=== PATIENT | female | born 1980 | race Caucasian/White ===

== ENCOUNTER → 2024-03-24 | Outpatient (CLI) | payer OTHER, SELFPAY ==
--- NOTE | 2024-03-24 15:30 | XR_ITS ---
Examination: Screening digital mammography, bilateral Computer aided detection 3-D breast Tomosynthesis, bilateral Date and time of exam: March 24, 2024 1519 hours No priors Indication: Screening Technique: Nonmagnified MLO, CC views of the breasts to been obtained, reconstructed from 3-D Tomosynthesis images. R2 computer aided detection program utilized for evaluation of suspicious masses and/or abnormal calcifications. 3-D Tomosynthesis images obtained. Findings: Scattered areas of fibroglandular density Suspicious for focal area of architectural distortion 6 mm outer left breast CC view Benign calcifications Impression: BI-RADS Category 0: Incomplete: Need additional imaging evaluation Suspicious for focal area of architectural distortion outer left breast CC view posterior depth, recommend follow-up spot tomographic views upper outer quadrant left breast posterior depth as well as bilateral breast sonography to complete the workup
== END | disposition home or self-care (01) ==
LOC: CDIM 14:57
PROVIDERS: Referring Provider Family Medicine; Visit Provider Family Medicine
DX: Z12.31 Encounter for screening mammogram for malignant neoplasm of breast (principal); R92.8 Other abnormal and inconclusive findings on diagnostic imaging of breast
CPT/HCPCS: 77063; 77067

== ENCOUNTER → 2024-04-19 | Outpatient (CLI) | payer OTHER, SELFPAY ==
--- NOTE | 2024-04-19 10:42 | XR_ITS ---
Examination: Breast ultrasound complete, bilateral Date and time of exam: April 19 2024 mL indications: Architectural distortion breast of mammogram March 2024 Technique: Real-time grayscale ultrasonographic imaging bilateral breasts, including all 4 quadrants as well as nipple retroareolar and axillary regions. Findings: Sonographic images right breast 1:00 cyst 7 mm no solid nodules Sonographic images left breast. No cystic or solid masses. IMPRESSION: BI-RADS Category 2, benign findings
--- NOTE | 2024-04-19 10:42 | XR_ITS ---
Examination: Diagnostic digital mammography, unilateral, left Computer aided detection 3-D breast Tomosynthesis, unilateral Date and time of exam: 03/19/2024 1127 hours INDICATIONS: Mammogram March 24, 2024 architectural distortion 6 mm outer left breast CC view Technique: Nonmagnified MLO, CC views of the left breast have been obtained, reconstructed from 3-D Tomosynthesis images. R2 computer aided detection program utilized for evaluation of suspicious masses and/or abnormal calcifications. 3-D Tomosynthesis images obtained. Findings: Scattered areas of fibroglandular density Focal asymmetry outer left breast remains not definitely identified on the corresponding MLO view Impression: BI-RADS category 3: Probably benign findings One additional 6 month left mammogram follow-up is needed
== END | disposition home or self-care (01) ==
LOC: CDIM 10:34
PROVIDERS: PCP Family Medicine; Referring Provider Family Medicine; Visit Provider Family Medicine
DX: R92.332 Mammographic heterogeneous density, left breast (principal)
CPT/HCPCS: 76641; 77061; 77065; G0279